=== PATIENT | female | born 1985 | race American Indian/Alaskan Native ===

== ENCOUNTER 2018-04-21 06:09 | Inpatient (IN) | payer OTHER ==
--- NOTE | 2018-04-20 22:38 | History and Physical Report ---
History of Present Illness Date of examination: 04/21/18 History of present illness: Patient admitted for repeat section. Patient informed the risks of the surgery include bleeding possibly bleeding heavy enough to require blood transfusion, infection possible damage to bowel bladder ureter. Patient understands that due to her previous surgery she is an increased risks of adjacent organ damage. Patient's questions answered. Patient understands and desires to proceed. Patient's had uneventful care except for transfer to our practice third trimester Menstrual History Regularity: regular LMP: 07/20/2017 LMP reliability: definite LMP character: normal test type: urine test BC at conception: none Planned ? yes EDC Calculations LMP: 04/26/2018 EDC Confirmation: 04/26/2018 Past History : 3 Term Births: 1 Premature Births: 0 Living Children: 1 Para: 1 Mult. Births: 0 Prev : 1 Prev. attempt? none Aborta: 1 Elect. Ab: 0 Spont. Ab: 1 Ectopics: 0 # 1 Delivery date: 10/2014 Delivery type: SAB # 2 Delivery date: 03/05/2016 Weeks Gestation: 39 Delivery type: Hours of labor: 18 Anesthesia type: general Delivery location: [place] Sex: Female weight: 6lbs Name: Regulo Comments: Failed induction pre-eclampsia Past Medical History: Fibroids (2014) Past Surgical History: (2015) Family History Summary: Other family member - Has No Family History of Ovarvian Cancer - Entered On: 08/2018 Other family member - Has No Family History of Colon Cancer - Entered On: 2017 Other family member - Has Family History of Diabetes - Entered On: 04/05/2018 Other family member - Has Family History Breast Cancer - Entered On: 04/05/2018 Social History: Marital Status: Children: 1 Occupation: Finance Past Medical History Surgery (Non-network security administrator): (2015) Abnormal PAP: negative Uterine Anomaly: positive Social Hx: Marital Status: Children: 1 Occupation: Finance Infection History Hx of STD: none Genetic History Congenital Heart Defect: Mom: no Dad: no Raul Disease: Mom: no Dad: no Thalassemia Mom: no Dad: no Neural Tube Defect Mom: no Dad: no Down's Syndrome Mom: no Dad: no Puma-Sachs Mom: no Dad: no Sickle Cell Disease/Trait Mom: no Dad: no Hemophilia Mom: no Dad: no Muscular Dystrophy Mom: no Dad: no Cystic Fibrosis Mom: no Dad: no Deborah Chorea Mom: no Dad: no Mental Retardation Mom: no Dad: no Fragile X Mom: no Dad: no Other Genetic/Chromosomal Disorder Mom: no Dad: no Child w/other defect Mom: no Dad: no Current Allergies (reviewed today): No known allergies Past History Past Medical History: other (See HPI) Past Surgical History: section MANAGER ELECTRONIC History: other (See HPI) Family/Genetic History: other (See HPI) Social history: other (See HPI) - Obstetrical History Expected Date of Delivery: 04/26/18 Actual Gestation: 39 Week(s) 2 Day(s) : 3 Para: 1 Hx # Term Pregnancies: 1 Number of Pregnancies: 9 Spontaneous Abortions: 1 Induced : 0 Number of Living Children: 1 Medications and Allergies Allergies Allergy/AdvReac Type Severity Reaction Status Date / Time No Known Allergies Allergy Verified 04/21/18 06:36 - Physical Exam Breasts: Positive: deferred Cardiovascular: Regular rate Lungs: Positive: Normal air movement Abdomen: Positive: normal appearance Genitourinary (Female): Positive: normal external genitalia Results All other labs normal. Assessment and Plan - Patient Problems (1) 39 weeks gestation of Current Visit: No Status: Acute (2) Maternal care due to uterine scar from other previous surgery Current Visit: Yes Status: Acute Plan to address problem: Admit for repeat section.Patient informed the risks of the surgery include bleeding possibly bleeding heavy enough to require blood transfusion, infection possible damage to bowel bladder ureter. All questions answered. Patient agrees to proceed (3) Intramural leiomyoma of uterus Current Visit: Yes Status: Acute
[~2018-04-21 06:09] MED LIST: PITOCin/NS 20 UNIT/1000ML DRIP 20 UNITS/1,000 ML BAG IV SCH
[2018-04-21] MEDS ORDERED: BICITRA PO ONE (07:00)
[2018-04-21] MEDS ORDERED: PEPCID IV ONE (07:00)
[2018-04-21] MEDS ORDERED: ANCEF/STERILE WATER 2 GM/20 ML 2 GM/20 ML SYRINGE IV NR (07:00)
[2018-04-21] MEDS ORDERED: REGLAN IV ONE ×2 (07:00→12:00)
[2018-04-21 07:01] LABS: Hematocrit 32.6 % (30.3-42.9); Hemoglobin 11.1 gm/dl (10.1-14.3); Mean Corpuscular HGB Conc 34 % (30-34); Mean Corpuscular Hemoglobin 29 pg (28-32); Mean Corpuscular Volume 87 fl (79-97); Platelet Count 241 K/mm3 (140-440); Red Blood Count 3.76 M/mm3 (3.65-5.03); Red Cell Distribution Width 14.3 % (13.2-15.2)
[2018-04-21 07:24] LABS: Basophils % (Auto) 0.3 % (0.0-1.8); Eosinophils # (Auto) 0.1 K/mm3 (0.0-0.4); Lymphocytes # (Auto) 1.7 K/mm3 (1.2-5.4); Lymphocytes % (Auto) 23.8 % (13.4-35.0); Monocytes # (Auto) 0.6 K/mm3 (0.0-0.8)
[2018-04-21] MEDS: LACTATED RINGERS 1,000 ML IV SCH ×2 (07:27→07:29)
[2018-04-21] MEDS ORDERED: WATER FOR IRRIG STERILE IR ONE (08:03)
[2018-04-21] MEDS ORDERED: NACL 0.9% IR ONE (08:03)
[2018-04-21] MEDS ORDERED: PHENERGAN PR PRN (09:19)
[2018-04-21] MEDS ORDERED: NARCAN 0.4 MG/1 ML IV PRN ×2 (09:19→11:16)
[2018-04-21] MEDS ORDERED: ZOFRAN IV PRN (09:19)
[2018-04-21] MEDS ORDERED: PHENERGAN PO PRN (09:19)
--- NOTE | 2018-04-21 09:19 | Post Anesthesia Evaluation ---
- Post Anesthesia Evaluation Patient Participated: Yes Airway Patent: Yes Stable Respiratory Function: Yes Nausea/Vomiting: No Temp > 96.8F: Yes Pain Manageable: Yes Adequeate Hydration: Yes Anesthesia Complications: No
--- NOTE | 2018-04-21 09:19 | Anesthesia Consultation ---
Anesthesia Consult and Med Hx Date of service: 04/21/18 - Airway Anesthetic Teeth Evaluation: Good ROM Head & Neck: Adequate Mental/Hyoid Distance: Adequate Mallampati Class: Class II Intubation Access Assessment: Good - Pulmonary Exam CTA: Yes - Cardiac Exam Cardiac Exam: No Murmur - Pre-Operative Health Status ASA Pre-Surgery Classification: ASA2 Proposed Anesthetic Plan: Epidural, Spinal - Pulmonary Hx Asthma: No COPD: No Hx Pneumonia: No - Endocrine Hx End Stage Renal Disease: No
--- NOTE | 2018-04-21 09:37 | Operative Report ---
Operative Report Operative Report: Date of procedure: 04/21/2018 Pre-operative diagnosis: Intrauterine at 39 weeks with previous section, leiomyomata and keloid scar Post-operative diagnosis: Same Procedure name(s): Repeat low transverse section with removal of keloid scar Surgeon: Arvind Schulz MD Mink Farmer: ALEX Anesthesia: Spinal EBL: 800 mL Complications: None Findings: A showed a normal uterus tubes and ovaries bilaterally with multiple small myomas. Female infant weight 8 lbs. 7 oz. Apgars 8 at 1 minute and 9 at 5 minutes Specimen(s): None Procedure: The patient was brought to the operating room. A spinal was placed without any complications. She was then placed in left lateral tilt. Prepped and draped in the usual sterile manner. After testing for adequate anesthesia level, an elliptical incision was made around her previous scar. The keloid scar was removed This incision was taken down to the fascia. The fascia was then nicked in the midline. This incision was extended out laterally with Trevino scissors. The fascia was then sharply and bluntly from the underlying rectus muscles. The rectus muscles were bluntly and sharply . The peritoneum was then entered with the paratransit operator's fingers. This incision was spread vertically with care not to damage the bladder below. The bladder flap was then formed sharply and bluntly with Metzenbaum scissors. The Valentin self-retaining tractor was then placed without any difficulty. A transverse incision was made in lower uterine segment. This incision was extended laterally with the operators fingers. The amniotic sac was then entered bluntly with the paratransit operator's fingers. The was delivered from the vertex position. Bulb suction on the mother's abdomen. Cord was double clamped and cut. The infant was then passed to the nursery personnel who were in attendance. The above scores were given by the nursery personnel. The placenta was then bluntly removed. The uterus was then externalized and wiped clean the remaining products. The uterine incision was closed in layers. The first incision was closed in a locking manner using 0 Vicryl. This was followed by imbricating stitch also with 0 Vicryl. This closure was hemostatic. The bladder flap was copiously irrigated and found to be hemostatic. The pelvis was copiously irrigated and found to be hemostatic. The uterus was then placed back to the patient's abdomen. The retractors were removed. The rectus muscles were inspected and found to be hemostatic. The fascia was then closed in a running manner using 0 Vicryl. This incision was hemostatic irrigation Bovie. The skin was reapproximated with 4-0 Vicryl subcuticularly. The patient tolerated procedure well. Her urine was clear. The was admitted to the well baby nursery. The patient was accompanied to recovery room in good condition. Instrument count correct 3.
[2018-04-21] MEDS ORDERED: fentaNYL-BUPIV 2 MCG/ML-0.125% 200 MCG/100 ML BAG EPIDURAL SCH (10:00)
[2018-04-21] MEDS ORDERED: SODIUM CHLORIDE FLUSH SYRINGE 10 ML IV NR (10:00)
[2018-04-21] MEDS ORDERED: TUCKS PAD TP PRN (11:16)
[2018-04-21] MEDS ORDERED: MILK OF MAGNESIA PO PRN (11:16)
[2018-04-21] MEDS ORDERED: LANSINOH TP PRN (11:16)
[2018-04-21] MEDS ORDERED: D5LR 1,000 ML IV SCH (11:16)
[2018-04-21] MEDS ORDERED: PITOCin/NS 20 UNIT/1000ML DRIP 20 UNITS/1,000 ML BAG IV SCH (11:16)
[2018-04-21] MEDS ORDERED: SODIUM CHLORIDE FLUSH SYRINGE 10 ML IV SCH (11:16)
[2018-04-21] MEDS: REGLAN IV PRN ×2 (15:31→21:40)
[2018-04-21] MEDS: ANCEF/NS 1 GM/50 ML 1 GM/50 ML BAG IV SCH (18:35)
[2018-04-21 20:41] LABS: Hematocrit 30.8 % (30.3-42.9); Hemoglobin 10.4 gm/dl (10.1-14.3)
[2018-04-21] MEDS ORDERED: NUBAIN IV ONE (22:34)
[2018-04-22] MEDS: NORCO 5/325 PO PRN ×4 (02:00→20:50)
[2018-04-22] MEDS: ANCEF/NS 1 GM/50 ML 1 GM/50 ML BAG IV SCH (02:01)
--- NOTE | 2018-04-22 06:53 | Progress Note ---
Assessment and Plan - Patient Problems (1) delivery delivered Onset Date: ~04/21/18 Current Visit: Yes Status: Acute Plan to address problem: pt c/o coughing and itching Will order Benadryl and robutussin VSS FF below umb Lochia small Incision D&I H&H 08/24 drop r/t blood loss from surgery Asymptomatic Doing well s/p c/s P: continue pathway Advance diet and activity as tolerated. Subjective - Subjective Date of service: 04/22/18 (c/o coughing) Principal diagnosis: Day #1 s/p repeat section Patient reports: appetite normal, voiding normally, pain well controlled, ambulating normally : doing well Objective - Vital Signs Latest vital signs: Vital Signs Temp Pulse Resp BP BP Pulse Ox 04/22/18 04:32 98.1 F 93 H 18 128/76 04/22/18 01:53 98.4 F 91 H 18 136/66 04/21/18 21:35 98.5 F 95 H 18 124/70 04/21/18 17:08 98.9 F 86 18 131/80 04/21/18 10:30 97.6 F 70 16 124/78 04/21/18 10:01 82 17 122/62 100 04/21/18 09:46 78 20 103/50 100 04/21/18 09:31 85 14 116/64 99 04/21/18 09:16 80 15 123/73 98 04/21/18 09:11 79 17 131/69 99 04/21/18 09:06 85 17 123/58 99 04/21/18 09:01 97.7 F 86 19 122/52 99 04/21/18 07:32 94 H 132/82 04/21/18 07:00 87 130/70 Intake and Output 04/21/18 04/21/18 04/22/18 14:59 22:59 06:59 Intake Total 75 650 Output Total 300 400 Balance 75 350 -400 Intake: IV 75 50 ANCEF/NS 1 GM/50 ML 1 gm 50 In 50 ml @ 100 mls/hr IV Q8H [facility] Rx#:[id number] Lactated Ringers 1,000 ml 75 @ 2250 mls/hr IV PREOP [facility]ICO Rx#:[id number] Oral 120 Intake, Free Water 480 Output: Urine 300 400 Indwelling Catheter 300 Void 400 Other: Total, Intake Amount 120 Total, Output Amount 300 400 # Voids Indwelling Catheter 350 Estimated Blood Loss 800 - Exam Breasts: Present: normal Cardiovascular: Present: Regular rate Lungs: Present: Normal air movement Abdomen: Present: normal appearance, soft, normal bowel sounds Uterus: Present: normal Extremities: Present: normal Incision: Present: normal, dry, intact - Labs Labs: Abnormal lab results 04/21/18 Range/Units 06:35 Phillips % (Auto) 9.0 H (0.0-7.3) %
[2018-04-22] MEDS: BENADRYL PO PRN ×2 (08:13→14:25)
[2018-04-22] MEDS: ROBITUSSIN PO PRN ×2 (10:26→14:23)
[2018-04-22] MEDS: PRENATAL VITAMIN PO SCH (10:33)
[2018-04-22] MEDS: FEOSOL PO SCH (10:33)
[2018-04-23] MEDS: NORCO 5/325 PO PRN ×4 (02:20→20:11)
--- NOTE | 2018-04-23 08:13 | Discharge Summary ---
Providers - Providers Date of Admission: 04/21/18 06:09 Date of discharge: 04/23/18 (Pt desires d/c home this morning) Attending physician: RYAN GALE 04/21/18 11:16 Consult to Head Of Advertising [CONS] Routine Reason For Exam: Primary care physician: RYAN GALE Hospitalization Reason for admission: repeat c/s Condition: Good Pertinent studies: postop H&H 10.4/30.8 Procedures: repeat c/s Hospital course: uncomplicated c/s and course Disposition: DC-01 TO HOME OR SELFCARE - Discharge Diagnoses (1) delivery delivered Status: Acute Core Measure Documentation - Palliative Care Palliative Care/ Comfort Measures: Not Applicable - Core Measures Any of the following diagnoses?: none Exam - Constitutional Vitals: Temp Pulse Resp BP Pulse Ox 98.8 F 96 H 18 127/69 95 04/23/18 01:30 04/23/18 01:30 04/23/18 01:30 04/23/18 01:30 04/22/18 16:22 General appearance: Present: no acute distress, well-nourished - EENT Eyes: Present: PERRL ENT: hearing intact, clear oral mucosa - Neck Neck: Present: supple, normal ROM - Respiratory Respiratory effort: normal Respiratory: bilateral: CTA - Cardiovascular Heart Sounds: Present: S1 & S2. Absent: rub, click - Extremities Extremities: pulses symmetrical, No edema Peripheral Pulses: within normal limits - Abdominal General gastrointestinal: Present: soft, non-tender, non-distended, normal bowel sounds Female genitourinary: Present: normal - Integumentary Integumentary: Present: clear, warm, dry - Musculoskeletal Musculoskeletal: gait normal, strength equal bilaterally - Psychiatric Psychiatric: appropriate mood/affect, intact judgment & insight - Neurologic Neurologic: CNII-XII intact, moves all extremities - Additional findings Additional findings: incision D&I, lochia scant, fundus firm, with good latch Plan Activity: no restrictions Diet: regular Wound: open to air, keep clean and dry Follow up with: RYAN GALE MD [Primary Care Provider] - 05/03/18 2:00 pm ( Congratulations! Please call [phone] for any questions or concerns. Please keep your appointment with Dr. Gale 05/03/18 @ 2PM) Prescriptions: Ferrous Sulfate [Feosol 325 MG tab] 325 mg PO BID #60 tablet Ibuprofen [Motrin 800 MG tab] 800 mg PO Q6H PRN #30 tablet PRN Reason: Pain oxyCODONE /ACETAMINOPHEN [Percocet 5/325 mg] 1 - 2 tab PO Q4H PRN #30 tablet PRN Reason: Pain, Moderate
[2018-04-23] MEDS: PRENATAL VITAMIN PO SCH ×2 (12:00→18:33)
[2018-04-23] MEDS: FEOSOL PO SCH ×2 (12:15→18:31)
[2018-04-24] MEDS: NORCO 5/325 PO PRN (02:54)
[2018-04-24] MEDS: FEOSOL PO SCH (10:23)
[2018-04-24] MEDS: PRENATAL VITAMIN PO SCH (10:23)
[2018-04-24 12:28] VITALS: BP 135/72
== END 2018-04-24 14:30 | disposition home or self-care (01) | DRG 766 ==
LOC: APU 06:09 → OB 10:43
PROVIDERS: ADMIT Obstetrics & Gynecology; ATTEND Obstetrics & Gynecology
PROC: 10D00Z1 Extraction of Products of Conception, Low, Open Approach (ICD-10-PCS; principal; 2018-04-21)
DX: O34.211 Maternal care for low transverse scar from previous cesarean delivery (principal); O34.13 Maternal care for benign tumor of corpus uteri, third trimester; D25.9 Leiomyoma of uterus, unspecified; L91.0 Hypertrophic scar; Z3A.39 39 weeks gestation of pregnancy; Z37.0 Single live birth
CPT/HCPCS: 36415; 85014; 85018; 85025; 86592; 86762; 86850; 86900; 86901; 87806; 99211; A6250; C1765; G0463; J0690; J2300; J2765; J7120; J7121